=== PATIENT | female | born 1950 ===

== ENCOUNTER → 2025-01-28 10:59 | Outpatient (BNVA) | payer OTHER, MEDICAID, SELFPAY | PROVIDERS: Family Provider Family Medicine; Visit Provider Nurse Practitioner | DX: M19.011 Primary osteoarthritis, right shoulder (principal); M67.911 Unspecified disorder of synovium and tendon, right shoulder | CPT/HCPCS: 20610; 73030; 99204; J1100; J2795; J3301; J9999 ==